=== PATIENT | female | born 1990 | race Caucasian/White ===

== ENCOUNTER 2017-01-15 03:08 | Emergency (ER) | payer BC ==
[~2017-01-15] VITALS: Ht 152.4 cm; Wt 54.0 kg
[2017-01-15 03:10] VITALS: TEMP 36.7; Ht 152.4 cm; Wt 54.0 kg
[2017-01-15] MEDS ORDERED: XYLOCAINE 1%/SOD BICARB 20 ML VIAL INFIL ONE (03:20)
[2017-01-15] MEDS ORDERED: LIDO/EPINEPHRINE/SOD BICARB 20 ML VIAL INFIL ONE (03:42)
[2017-01-15 04:55] VITALS: BP 123/88; PULSE 98; O2SAT 99
--- NOTE | 2017-01-16 03:34 | EMERGENCY ROOM VISIT NOTE ---
History First contact with patient: 03:13 Chief Complaint: LACERATION/CUT (SUT/DERMABOND) Stated Complaint: LAC Nursing Triage Summary: Pt was drinking tonight and fell. Pt hit face on the counter and has laceration above right eye. Pt denies any LOC. No other injury. History of Present Illness The patient is a 26 year old female who presents to the Emergency Room with complaints of laceration to the right side of her face after falling this evening. The patient was and a [place] camp with friends and had been drinking alcohol tonight. She was walking through the house when she slipped and struck her head off a countertop. The patient did not lose consciousness or suffer additional injury. She has a laceration of her right eyebrow that continues to bleed. She believes that she is up-to-date on her tetanus. She does not report neck pain, chest pain, shortness of breath, numbness, or paresthesias. She is able to see out of the eye on the right without difficulty. No bleeding from the nose, mouth, or ears. Her injuries appear limited to her laceration. She rates her discomfort a 1/10. She has not taken anything [id number] for her symptoms. Review of Systems More than 10 systems were reviewed and otherwise negative with the exception of history of present illness. Past Medical/Surgical History No reported chronic medical disease Family History No pertinent family history Social History Smoking Status: Current Every Day Smoker Housing Status: lives with family Physical Exam Vital Signs Date Time Temp Pulse Resp B/P (MAP) Pulse Ox O2 Delivery O2 Flow Rate FiO2 01/15/17 04:55 98 18 123/88 99 01/15/17 03:10 36.7 117 20 150/93 95 Room Air Pain Rating (0-10): 0 Physical Exam VITALS: Vitals are noted on the nurse's note and reviewed by myself. Vital signs stable. GENERAL: Well-developed, well-nourished, 26-year-old female who appears mildly intoxicated and pleasant. Patient is cooperative with the examination. HEAD: There is a 6.5 cm curvilinear laceration to the mid right eyebrow. This does gape and will require repair. No salguero sign or raccoon eyes. EARS: External ear normal. External auditory canals clear, tympanic membranes pearly mclaughlin without erythema or effusion bilaterally. EYES: Pupils equal round and reactive to light and accommodation. Conjunctivae without injection, sclerae without icterus. Extraocular movements intact. NOSE: Patent, turbinates without inflammation or discharge. MOUTH: Mucous membranes moist. Tonsils are not enlarged. Pharynx without erythema, blood, or exudate. Uvula midline. Airway patent. NECK: Supple without nuchal rigidity. No lymphadenopathy. No thyromegaly. Cervical spine is nontender. HEART: Regular rate and rhythm without murmurs gallops or rubs. LUNGS: Clear to auscultation bilaterally without wheezes, rales or rhonchi. No retractions or accessory muscle use. Medical Decision & Procedures Procedure Laceration repair. Patient elects to have their laceration repaired. Verbal consent was obtained to perform the procedure. There is an abundance of materials available for the procedure. Patient is not allergic to latex. Using sterile technique the wound was cleaned with Betadine. The area was sterilely draped. 5 ml of 1% buffered lidocaine with epinephrine was used to anesthetize the right eyebrow laceration. Once the patient was anesthetized, the wound was copiously irrigated under pressure with sterile saline. The wound was explored and there were no deep structures injured such as tendons, bone, or significant blood vessels. The laceration was repaired using 15 simple interrupted 6-0 nylon sutures with the wound edges being well approximated. Hemostasis was achieved. The area was cleaned with sterile saline and dressed with bacitracin ointment and bandage. Patient tolerated the procedure well without complications. Blood loss was negligible. ED Course Physical exam and history were performed. Nursing notes, EMR, and Medication List were personally reviewed. Patient appears to have fallen and suffered laceration to her right eyebrow. The wound was repaired as above and patient tolerated the procedure well. The patient was monitored here in the department and did not have any worsening or new symptoms. She appears well and stable for discharge home. She was given wound care instructions and was invited back to the ER with any new, worsening, or concerning symptoms. The chart was completed utilizing [employer] Voice [employer]ognition Software. Grammatical errors, random word insertions, pronoun errors, and incomplete sentences are an occasional consequence of this system due to software limitations, ambient noise, and hardware issues. Any formal questions or concerns about the content, text, or information contained within the body of this dictation should be directly addressed to the provider for clarification. . Medical Decision Differential diagnosis includes, but is not limited to: Laceration, abrasion, foreign-body, alcohol intoxication, fall, head injury, concussion, intracranial bleed, and others Impression Primary Impression: Laceration of eyebrow, right Departure Information Dispostion Home / Self-Care Condition GOOD Forms HOME CARE DOCUMENTATION FORM, IMPORTANT VISIT INFORMATION Patient Instructions [facility], ED Laceration All, ED Scar Tips to Minimize Additional Instructions Keep wound clean and dry. Do not allow any crusting or dried blood to accumulate on sutures. If this occurs, use a mild soap/water on a Q-tip to clean the wound. Do not use Peroxide to clean the wound as this can delay healing Use an antibiotic ointment like Bacitracin for 3-4 days, then let wound dry. You may bathe and shower as normal, but DO NOT SOAK the wound. Suture removal in about 7 days with your Family Doctor or in the ER. Return sooner for any signs of infection, increasing redness, swelling, or drainage.
== END 2017-01-15 04:56 | disposition home or self-care (01) ==
LOC: C.EDB 03:09
DX: S01.111A Laceration without foreign body of right eyelid and periocular area, initial encounter (principal); W18.49XA Other slipping, tripping and stumbling without falling, initial encounter; W22.8XXA Striking against or struck by other objects, initial encounter; Y93.01 Activity, walking, marching and hiking; Y99.8 Other external cause status; Y92.833 Campsite as the place of occurrence of the external cause; F17.200 Nicotine dependence, unspecified, uncomplicated

== ENCOUNTER 2017-01-16 03:29 | Emergency (ER) | payer BC ==
[~2017-01-16] VITALS: Ht 152.4 cm; Wt 50.2 kg
[2017-01-16 03:37] VITALS: TEMP 36.8; Ht 152.4 cm; Wt 50.2 kg
[2017-01-16 04:28] VITALS: BP 119/84; PULSE 74; O2SAT 99
--- NOTE | 2017-01-17 01:41 | EMERGENCY ROOM VISIT NOTE ---
History First contact with patient: 03:47 Chief Complaint: BLEEDING Stated Complaint: BLEEDING THROUGH STITCHES Nursing Triage Summary: cut to right medial eyebrow, sutures placed yesterday. bleeding began again around 11pm last night. denies new trauma. states "i think of of the sutures came out." bandaid on preshopital History of Present Illness The patient is a 26 year old female who presents to the Emergency Room with complaints of bleeding from a lacerated right eyebrow. The patient was seen by myself last evening after falling and striking her head. She has a right eyebrow laceration that required 15 stitches. The patient states that she was doing well throughout the day, took off her bandage, and showered this evening. After showering she noticed that the bleeding returned. The patient is concerned that one of the stitches have come out. She does not have new injury or trauma. She does not report any new or worsening pains when compared to yesterday. She rates her current discomfort a 0/10. Review of Systems More than 10 systems were reviewed and otherwise negative with the exception of history of present illness. Past Medical/Surgical History No chronic medical disease Family History No pertinent family history Social History Smoking Status: Current Some Day Smoker Current/Historical Medications No Active Prescriptions or Reported Meds Physical Exam Vital Signs Date Time Temp Pulse Resp B/P (MAP) Pulse Ox O2 Delivery O2 Flow Rate FiO2 01/16/17 04:28 74 18 119/84 99 01/16/17 03:37 36.8 85 18 128/92 99 Room Air Pain Rating (0-10): 4.0 Physical Exam VITALS: Vitals are noted on the nurse's note and reviewed by myself. Vital signs stable. GENERAL: Well-developed, well-nourished, white female, who is in no acute distress and resting comfortably. Patient is cooperative with the examination. HEAD: Sutured laceration over the right eyebrow appears with very minimal slow bleeding from the medial aspect. The stitches remain intact and 15 were counted. HEART: Regular rate and rhythm without murmurs gallops or rubs. LUNGS: Clear to auscultation bilaterally without wheezes, rales or rhonchi. No retractions or accessory muscle use. Medical Decision & Procedures ED Course Physical exam and history were performed. Nursing notes, EMR, and Medication List were personally reviewed. Patient appears to have bleeding from a repaired laceration. This occurred after she showered this evening, and at this point appears to be only a very small and slow bleed. I did gently cleanse the wound, and she does have all [address] I had the patient hold pressure on the area, and after 15- 20 minutes her bleeding had resolved. I will have nursing place a Xeroform pressure dressing over the wound to help with bleeding. The patient seems otherwise stable for discharge. She was invited back to the ER with any new, worsening, or concerning symptoms. The chart was completed utilizing [employer] Speech Voice Recognition Software. Grammatical errors, random word insertions, pronoun errors, and incomplete sentences are an occasional consequence of this system due to software limitations, ambient noise, and hardware issues. Any formal questions or concerns about the content, text, or information contained within the body of this dictation should be directly addressed to the provider for clarification. . Medical Decision Differential diagnosis includes, but is not limited to: Laceration, abrasion, foreign body, infection, bleeding from, and others Impression Primary Impression: Bleeding from wound Departure Information Dispostion Home / Self-Care Condition GOOD Prescriptions No Active Prescriptions or Reported Meds Forms HOME CARE DOCUMENTATION FORM, IMPORTANT VISIT INFORMATION Patient Instructions My [facility] Additional Instructions You were seen and evaluated today on an emergency basis only. This is not a substitute for, or an effort to provide, complete comprehensive medical care. It is not possible to recognize and treat all injuries or illnesses in a single emergency department visit. For this reason it is recommended that you followup as previously instructed. Continue to apply a bacitracin ointment and dressing over the area. You may wish to apply a pressure dressing if symptoms persist. You are welcome to return to the emergency department anytime with new, worsening, or concerning symptoms.
== END 2017-01-16 04:28 | disposition home or self-care (01) ==
LOC: C.EDB 03:30
DX: T81.89XA Other complications of procedures, not elsewhere classified, initial encounter (principal); Y84.8 Other medical procedures as the cause of abnormal reaction of the patient, or of later complication, without mention of misadventure at the time of the procedure; S01.111D Laceration without foreign body of right eyelid and periocular area, subsequent encounter; W19.XXXD Unspecified fall, subsequent encounter; W22.09XD Striking against other stationary object, subsequent encounter; F17.210 Nicotine dependence, cigarettes, uncomplicated